=== PATIENT | female | born 1970 | race Caucasian/White ===

== ENCOUNTER 2020-06-04 18:09 | Inpatient (IN) | payer BC ==
[~2020-06-04 18:09] MED LIST: Iopamidol-370 76% 500 ML 1 ML ONE
[2020-06-04] MEDS ORDERED: Ondansetron PF 4 MG/2 ML Vial ONE ×2 (18:20→20:20)
[2020-06-04] MEDS ORDERED: Morphine 4 MG/ML VIAL ONE (18:20)
--- NOTE | 2020-06-04 19:05 | CT ---
CT CERVICAL SPINE 06/04/20 PROVIDED CLINICAL HISTORY: Head injury. FINDINGS: Opacification of the right mastoid air cells is described on concurrent head CT. Please see that rep ort. A temporal bone fracture is not visible on these images. There is no evidence for fracture or tr aumatic subluxation involving the cervical spine. There is no prevertebral soft tissue swelling appar ent. The visualized lung apices appear clear. IMPRESSION: No evidence for fracture or traumatic subluxation. POS: TESSA
[2020-06-04] MEDS ORDERED: Tranexamic Acid 1,000 MG/10 ML VIAL ONE (19:10)
[2020-06-04] MEDS ORDERED: CEFAZOLIN 1 GM VIAL ONE (19:10)
--- NOTE | 2020-06-04 19:10 | CT ---
CT BRAIN 06/04/20 PROVIDED CLINICAL HISTORY: Head injury. FINDINGS: There is a small amount of anterior parafalcine subdural hematoma. Subarachnoid blood is seen in the right temporal region. There may be also subarachnoid hemorrhage within the prepontine cistern. There is conspicuous extra-axial hematoma adjacent to the right occipital region, with a combination of subdural and epidural blood possible. There are multiple foci of intracranial gas present within t his hematoma in the occipital region. There is a widened appearance to the distal aspect of the lambdoid suture. There is opacification of much of the right mastoid air cells. The ventricular system is nondilated. The extracranial soft tiss ues and osseous structures appear otherwise unremarkable with the exception of right parieto-occipita l scalp swelling. IMPRESSION: 1. Right occipital extra-axial hematoma possibly a combination of epidural and subdural blood. S cattered subarachnoid hemorrhage and small anterior parafalcine subdural hematoma. 2. Findings suspicious for right temporal bone fracture. 3. Findings discussed with Dr. Mckeon via telephone, 6:54 p.m., 06/04/20. Code CR POS: TESSA
--- NOTE | 2020-06-04 19:12 | CT ---
CT ABDOMEN AND PELVIS WITH IV CONTRAST: LIMITED CT LUMBAR SPINE 06/04/20 PROVIDED CLINICAL HISTORY: Trauma with lumbar spine pain. FINDINGS: The visualized lung bases are free of significant opacity. The solid abdominal organs demonstrate no evidence for traumatic abnormality. There is enlarged hepat ic biliary ductal prominence on the basis of prior cholecystectomy. There is a tiny nonobstructing ri ght renal calculus. There is no bowel dilatation, inflammatory fat stranding, free fluid or free air apparent. The regional major vascular structures appear unremarkable. The osseous structures demonstrate no evidence for an acute abnormality. Coronal and sagittal lumbar spine reconstructions demonstrate normal spinal alignment and maintenance of vertebral body height. IMPRESSION: No evidence for traumatic abnormality involving the abdomen and pelvis. POS: TESSA
--- NOTE | 2020-06-04 19:12 | RAD ---
Exam: Chest one view HISTORY:Trauma. Fall. Patient hit her head. Comparison: None FINDINGS: Cardiac silhouette: Normal Aorta: Unremarkable Pulmonary vessels: Normal Costophrenic angles: Clear LUNGS: No masses or consolidation. Pneumothorax: None Osseous abnormalities: None IMPRESSION: No acute cardiopulmonary process.
[2020-06-04 19:26] LABS: Hemoglobin 13.5 g/dL (12.0-16.0); Mean Corpuscular HGB CONC 33.1 g/dL (32.0-36.0); Mean Corpuscular Hemoglobin 30.2 pg (27.0-31.0); Mean Corpuscular Volume 91.3 fL (78.0-98.0); Mean Platelet Volume 6.5 fL (7.4-10.4); Platelet Count 396 thou/uL (130-400); Red Blood Cell (RBC) Count 4.46 mill/uL (4.20-5.40); White Blood Cell (WBC) Count 20.2 thou/uL (4.8-10.8)
[2020-06-04] MEDS ORDERED: Acetaminophen 500 MG TAB ONE ×2 (19:29→23:50)
[2020-06-04 19:40] LABS: Eosinophils 1 % (0-10); Lymphocytes 8 % (21-51); MDiff Complete? YES; Monocytes 5 % (0-10); Neutrophil 84 % (42-75); Platelet Morphology Comment Appears Adequate; RBC Morphology Normal; Reactive Lymphocytes 1 % (0-10)
[2020-06-04 19:44] LABS: ALT (SGPT) 13 U/L (8-55); AST (SGOT) 18 U/L (5-34); Albumin 3.8 g/dL (3.5-5.0); Alkaline Phosphatase 73 U/L (40-110); Anion Gap 16 mmol/L (10-20); BUN (Urea Nitrogen) 13 mg/dL (7.0-18.7); Bilirubin, Total 0.2 mg/dL (0.2-1.2); Calc. Creatinine Clearance 0 mL/min (70-130); Calcium 9.1 mg/dL (7.8-10.44); Carbon Dioxide 22 mmol/L (22-29); Chloride 103 mmol/L (98-107); Globulin 2.9 g/dL (2.4-3.5); Glucose 110 mg/dL (70-105); Potassium 3.6 mmol/L (3.5-5.1); Protein, Total 6.7 g/dL (6.0-8.3); Sodium 137 mmol/L (136-145)
[2020-06-04 20:35] LABS: PTT 27.3 sec (22.9-36.1); Prothrombin Time 13.4 sec (12.0-14.7)
--- NOTE | 2020-06-04 20:53 | CON ---
DATE OF CONSULTATION: 06/04/2020 HISTORY OF PRESENT ILLNESS: The patient is a 49-year-old female who is otherwise healthy, who suffered a mechanical fall after slipping backwards while climbing a trailer at approximately 5 feet. The patient reportedly hit the back of her head on a concrete surface with sudden LOC. She was brought to the emergency department by flight EMS, where she was evaluated by the ER team with noncontrast CT head, cervical spine, chest, abdomen, and pelvis. CT of head was notable for an acute right temporal nondisplaced fracture with underlying pneumocephalus as well as a small right-sided occipital epidural hematoma. There is also small amount of blood on the anterior parafalcine region consistent with subdural hematoma as well as traumatic subarachnoid blood along the right temporal region. CT of the cervical spine was negative for acute injury. CT of chest, abdomen, and pelvis was also negative for acute injury. I evaluated the patient at the bedside. She has a GCS of 15. She is A and O x4, although appears significantly uncomfortable with severe headache. She is noted to have some right blood from the right ear canal. No obvious CSF drainage. PAST MEDICAL HISTORY: Otherwise healthy. Denies any prior medical problems. Does not take any anticoagulants or [id number] aspirin. PAST SURGICAL HISTORY: Hysterectomy, appendectomy, and cholecystectomy. SOCIAL HISTORY: She does not smoke, drink, or use any drugs. REVIEW OF SYSTEMS: Per HPI. PHYSICAL EXAMINATION: CONSTITUTIONAL: GCS 15, uncomfortable. VITAL SIGNS: Stable. HEAD: No obvious scalp laceration. There is some blood from the right ear canal. EYES: PERRLA. Extraocular movements intact. ENT: Right ear canal blood noted. Oral mucosa is pink and moist. No obvious trauma. NECK: She is mobilized with the cervical collar, which I removed. She is nontender to the cervical spine. Normal range of motion without any pain with range of motion. I cleared her cervical collar at the bedside. RESPIRATORY: Symmetric chest expansion. No evidence of dyspnea. CARDIOVASCULAR: Regular rate and rhythm. MUSCULOSKELETAL: No obvious trauma. Free active range of motion of all extremities. No focal motor weakness. NEUROLOGIC: She has a GCS of 15. She is A and O x4. Pupils are equal and reactive. No focal neurologic deficits are appreciated at this time. ASSESSMENT AND PLAN: This is a 49-year-old female with fall approximately 5 feet with an acute right temporal bone fracture, nondisplaced with associated epidural hematoma along the right occipital region as well as traumatic subarachnoid blood in the right temporal region and subdural hematoma anterior parafalcine. We will plan to watch her closely in the ICU with q.1 neuro checks. She will be made n.p.o. and we should avoid any anticoagulation. I will plan to repeat an a.m. CT head to reassess her intracranial process. I have discussed this plan with Dr. Hickman, who is in agreement as well as notified the Trauma Service of our current plan. Job ID: [id number]
[2020-06-04 20:54] LABS: SARS-CoV-2 NAA Rapid Test Not Detected (NotDetected)
[2020-06-04] MEDS: Scopolamine 1.5 mg/72 hour Patch TD SCH (21:00)
--- NOTE | 2020-06-04 22:04 | HP ---
REQUESTING PHYSICIAN: Fred Mckeon DO. ADDITIONAL ATTENDING SURGEON: Dr. Edouard. CONSULTATIONS: Neurosurgery, Dr. Hickman. HISTORY OF PRESENT ILLNESS: The patient is a 49-year-old woman, who was brought to the emergency department by air ambulance after a fall from approximately 5 feet. She was working on a trailer and lost her health care specialist and fell backwards onto the pavement. The patient had loss of consciousness for an unknown amount of time. She did wake up and was a GCS of 15 when EMS arrived. She was transported to our facility, where she underwent evaluation and examination, was noted to have temporal bone fracture with epidural hematoma and subarachnoid hemorrhage, at which time we were asked to evaluate the patient for admission and obtain neurosurgical consultations. ALLERGIES: CODEINE. CURRENT MEDICATIONS: Phentermine. PAST MEDICAL HISTORY: None. PAST SURGICAL HISTORY: Appendectomy, cholecystectomy, hysterectomy. SOCIAL HISTORY: The patient denies drug, tobacco, or alcohol use. She lives at home with family. REVIEW OF SYSTEMS: 10-point review of systems is negative as otherwise stated. PHYSICAL EXAMINATION: VITAL SIGNS: Blood pressure 138/62, heart rate 56, respirations 18, oxygen saturation 98% on room air, temperature 98.2. GENERAL: The patient is resting in the ER bed. She appears uncomfortable as she is holding her head, and shortly after my visit, she complained of severe nausea and had episode of emesis. HEENT: Head is normocephalic and atraumatic. Eyes are PERRLA with reported photophobia making extraocular movements difficult to examine but were intact by report. Ears, there is dry blood in the right ear canal. There does not appear to be any obvious CSF fluid. Left ear canal is atraumatic without discharge. Nose is atraumatic without discharge. Oropharynx is clear. NECK: Nontender. Trachea is midline with no JVD. Cervical collar has been cleared by Neurosurgery. RESPIRATIONS: Clear bilaterally. HEART: Slightly tachycardic with regular rhythm. Of note, the patient had just vomited as this may have increased her heart rate, as her previous heart rate was in the 50s and 60s. ABDOMEN: Soft, nontender with hyperactive bowel sounds. EXTREMITIES: Neurovascularly intact x4. [place] Coma Scale is 15. PELVIS: Stable. BACK: Atraumatic and nontender. LABORATORY FINDINGS: White blood cell count 20.2, hemoglobin 13.5, hematocrit 40.7, platelets 396. Sodium 137, potassium 3.6, chloride 103, CO2 of 22, BUN 13, creatinine 0.71, glucose 110. LFTs are unremarkable. PT 13, INR 1.0, PTT 27. COVID is negative. RADIOGRAPHIC FINDINGS: CT of the brain without contrast shows a right occipital extra-axial hematoma, possibly a combination of epidural and subdural blood, scattered subarachnoid hemorrhage, and small anterior parafalcine subdural hematoma. There are findings suspicious for right temporal bone fracture. CT of the C-spine without contrast shows no evidence for fracture or traumatic subluxation. CT of the abdomen and pelvis with IV contrast and limited CT lumbar spine showed no evidence of traumatic abnormality involving the abdomen and pelvis. AP chest x-ray shows no acute cardiopulmonary process. ASSESSMENT/PLAN: 1. Status post fall from approximately 5 feet. 2. Right temporal bone fracture. 3. Right occipital extra-axial hematoma, possibly a combination of epidural and subdural blood. 4. Scattered subarachnoid hemorrhage and small anterior parafalcine subdural hematoma. 5. Acute pain secondary to above. PLAN: Plan will be to admit the patient to the critical care floor for close observation, serial exams with a planned repeat head CT in the morning, sooner as indicated by decline in the [place] Coma Scale. We will do nonnarcotic pain control, pulmonary toilet, gastritis and mechanical VTE prophylaxis. The patient will also have a scopolamine patch placed. The patient was evaluated in the emergency department by SHRUTHI Prather, who discussed this case with Dr. Hickman. The evaluation, examination, laboratory, and radiographic findings will be discussed with Dr. Edouard after this dictation. Job ID: [id number]
[2020-06-04] MEDS ORDERED: Promethazine HCl 25 MG/ML VIAL ONE (22:47)
[2020-06-04] MEDS: Promethazine HCl 25 MG/ML VIAL IM PRN (22:52)
[2020-06-04] MEDS ORDERED: traMADol HCl 50 MG TAB PO PRN (23:45)
[2020-06-04] MEDS ORDERED: Dextrose 5% in Water 1,000 ML IV PRN (23:45)
[2020-06-04] MEDS ORDERED: Dextrose 50% Abboject 50 ML SYRINGE SLOW IVP PRN (23:45)
[2020-06-04] MEDS ORDERED: hydrALAZINE 20 MG/ML VIAL SLOW IVP PRN (23:45)
[2020-06-04] MEDS ORDERED: traMADol HCl 50 MG TAB ONE (23:50)
[2020-06-04] MEDS ORDERED: Famotidine 20 MG TAB PO SCH (23:59)
[2020-06-05] MEDS: Sodium Chloride 0.9% 1,000 ML IV SCH ×2 (00:07→08:41)
[2020-06-05] MEDS: Acetaminophen 500 MG TAB PO SCH ×5 (00:08→23:58)
[2020-06-05] MEDS: traMADol HCl 50 MG TAB PO PRN ×2 (00:19→08:45)
[2020-06-05] MEDS ORDERED: Famotidine 20 MG TAB ONE (00:21)
[2020-06-05 00:30] VITALS: BMI 26.9
[2020-06-05 00:37] LABS: Bilirubin Negative (Negative); Blood, Urine Negative (Negative); Clarity Clear (Clear); Glucose, Urine (Dipstick) Normal (Negative); Ketone, Urine 20 mg/dL (Negative); Leukocyte Negative Leu/uL (Negative); Nitrite Negative (Negative); Pregnancy Test - Urine (BHCG) Negative (Negative); Pregu Control Background? CLEAR/WHITE (CLR/WHITE); Pregu Control Bar Appear? YES (CONTROL BAR); Protein, Urine (Dipstick) Negative (Neg-Trace); Specific Gravity 1.042 (1.002-1.036); Specific Gravity, Urine 1.042 (1.002-1.036); Urobilinogen Normal mg/dL (Less than 2); pH, Urine 6.5 (5.0-9.0)
[2020-06-05] MEDS ORDERED: Morphine 2 MG/ML VIAL ONE (03:14)
[2020-06-05] MEDS: Morphine 2 MG/ML VIAL SLOW IVP SCH ×2 (03:17→15:38)
[2020-06-05] MEDS: ceFAZolin 1 GM/D5W 1 GM in Premix Bag 1 BAG IVPB SCH ×2 (04:07→15:05)
[2020-06-05 04:23] LABS: #Lymphocytes 0.9 thou/uL (1.20-3.40); #Monocytes 0.9 thou/uL (0.11-0.59); #Neutrophils 14.4 thou/uL (1.40-6.50); %Basophils 0.1 % (0.0-1.0); %Eosinophils 0.1 % (0.0-10.0); %Lymphocytes 5.3 % (21.0-51.0); %Monocytes 5.4 % (0.0-10.0); Hemoglobin 11.3 g/dL (12.0-16.0); Mean Corpuscular HGB CONC 32.1 g/dL (32.0-36.0); Mean Corpuscular Hemoglobin 29.8 pg (27.0-31.0); Mean Corpuscular Volume 92.8 fL (78.0-98.0); Mean Platelet Volume 6.6 fL (7.4-10.4); Platelet Count 320 thou/uL (130-400); RBC Distribution Width 11.9 % (11.5-14.5); Red Blood Cell (RBC) Count 3.81 mill/uL (4.20-5.40); White Blood Cell (WBC) Count 16.1 thou/uL (4.8-10.8)
[2020-06-05 04:54] LABS: Anion Gap 10 mmol/L (10-20); BUN (Urea Nitrogen) 11 mg/dL (7.0-18.7); Calc. Creatinine Clearance 153 mL/min (70-130); Calcium 7.4 mg/dL (7.8-10.44); Carbon Dioxide 23 mmol/L (22-29); Chloride 110 mmol/L (98-107); Glucose 117 mg/dL (70-105); Magnesium 1.5 mg/dL (1.6-2.6); Phosphorus 3.1 mg/dL (2.3-4.7); Potassium 3.6 mmol/L (3.5-5.1); Sodium 139 mmol/L (136-145)
--- NOTE | 2020-06-05 07:30 | CT ---
PRELIMINARY REPORT/DIRECT RADIOLOGY/EMERGENCY AFTER HOURS PROCEDURE: EXAM: CT Head Without Intravenous Contrast. CLINICAL HISTORY: Follow up Bifrontal tSAH, SDH TECHNIQUE: Axial computed tomography images of the head/brain without intravenous contrast. COMPARISON: June 04, 2020 FINDINGS: Extraaxial hematoma again posteriorly on the right again possibly a combination of epidural and subdural location of the hemorrhage. The epidural appearing component of the collection more towards the midline may be slightly larger but this is equivocal. Small pockets of pneumocephalus ar e noted secondary to what is presumably an occult fracture either within the temporal bone on the right or along the lambdoid suture on the right. Some mass-effect on the posterior horn of the right lateral ventricle is again noted and about the same. IMPRESSION: Extra-axial hemorrhage posteriorly on the right stable or may be slightly larger. ELECTRONICALLY SIGNED BY: Israel Schaeffer MD Jun 05, 2020 4:32:52 AM MANAGER DOCUMENTATION FINAL REPORT HEAD CT WITHOUT CONTRAST: DATE: 06/05/2020 COMPARISON: 06/04/2020. HISTORY: Reevaluate subarachnoid and subdural hemorrhage. FINDINGS: Small volume extraaxial hemorrhage is seen along the inferior anterior aspect of the interhemispheric fissure on image 9, not significantly changed. There is small volume extraaxial blood in the right sylvian fissure and anterior to the right temporal lobe which appears similar when compared to the pr ior examination. There is extraaxial hemorrhage layering on the right tentorium, similar when compared to prior imaging. There is a subdural hematoma in the posterior right occipital region which measures up to approximately 7 mm in AP dimension, not significantly changed. There is no evidence for new intracranial hemorrhage. There is stable scalp swelling posteriorly on the right. The posteri or right occipital extraaxial subdural hematoma contains foci of gas which are likely representing associated right temporal bone fracture. There is partial opacification of the mastoid air cells and tympanic cavity on the right. Dedicated CT of the temporal bones is suggested for macias assessment. IMPRESSION: No significant interval change in multifocal extraaxial hemorrhage, most prominent in the posterior r ight parieto-occipital region. Hemorrhage in this region contains gas suggesting associated temporal bone fracture on the right for which a dedicated CT of the temporal bones is advised. Given the lobulated configuration of the stable extraaxial hemorrhage in the right occipital region a small associated epidural component cannot be excluded. Continued followup is advised. Transcribed Date/Time: 06/05/2020 8:19 AM
[2020-06-05] MEDS ORDERED: Promethazine HCl 25 MG/ML VIAL ONE (07:32)
[2020-06-05] MEDS: Promethazine HCl 25 MG/ML VIAL IM PRN (07:37)
[2020-06-05] MEDS ORDERED: traMADol HCl 50 MG TAB ONE (08:43)
[2020-06-05] MEDS ORDERED: Ondansetron PF 4 MG/2 ML Vial ONE (08:58)
[2020-06-05] MEDS ORDERED: FLU VACC QS2020-21(6MOS UP)/PF 60 MCG/0.5 ML SYRINGE IM ONE (09:00)
[2020-06-05] MEDS ORDERED: Promethazine HCl 12.5 MG in Sodium Chloride 0.9% 50 ML IVPB SCH (09:00)
[2020-06-05] MEDS: Ondansetron PF 4 MG/2 ML Vial IVP PRN ×2 (09:01→21:25)
[2020-06-05] MEDS: Famotidine 20 MG TAB PO SCH ×2 (09:41→21:19)
[2020-06-05] MEDS: SODIUM CHLORIDE 0.9% IVPB SCH ×3 (10:47→20:55)
[2020-06-05] MEDS: DEXAMETHASONE IVPB SCH ×3 (10:47→20:55)
[2020-06-05] MEDS: PROMETHAZINE HCL IVPB SCH ×3 (10:47→20:55)
--- NOTE | 2020-06-05 11:53 | PRG ---
DATE OF SERVICE: 06/04/2020 The patient is seen and examined. I agree with Germaine Dale's evaluation on 06/03/2020. The patient is 49-year-old woman, who fell striking the back of her head. She is currently arousable, but somewhat somnolent, complains of dizziness and nausea as well as headache. She initially had bloody otorrhea, which now had stopped. CT scan has revealed a right posterior temporal/occipital fracture with a right-sided epidural hematoma and pneumocephalus. This was stable on followup imaging. IMPRESSION AND PLAN: The patient has a right temporal skull fracture with underlying epidural hematoma and pneumocephalus. No neurosurgical intervention is planned. She can be mobilized, but I expect her to be highly symptomatic for some time. The timing for dismissal depends on symptoms. No further imaging is required on this hospitalization. I will plan on a followup head CT in 4 weeks. The patient is at risk for delayed CSF otorrhea and we will need to watch for this. I recommend ceftriaxone while she is in the hospital, which can be discontinued upon discharge. Job ID: [id number]
[2020-06-05] MEDS: cefTRIAXone\\ROCEPHIN 1 GM in Sodium Chloride 0.9% 100 ML IVPB SCH (15:37)
--- NOTE | 2020-06-05 15:58 | PRG ---
DATE OF SERVICE: 06/05/2020 SUBJECTIVE: The patient is hospital day #2 status post fall, in which she sustained subdural and epidural hematomas. She was admitted to the facility for serial exams and close followup. Overnight, she remained neurologically stable with a [place] Coma Scale of 14/15. She continued to have intermittent bouts of severe emesis, which we addressed this morning. She appears to be better controlled and her headache is also better controlled, though we do expect this to linger likely for the next day or so. OBJECTIVE: VITAL SIGNS: Temperature is 98.0, heart rate 72, blood pressure 112/76, respirations 14, and oxygen saturation is 100% on room air. GENERAL: The patient is resting in bed. She was asleep at the time of our visit. Family member reports that she will awaken to verbal stimuli. During the initial evaluation, we did not awaken her on followup as she was initially in the emergency department as a CCU hold over. In the afternoon, she was able to be moved up to the surgical floor. While there, she maintained a GCS score of 14, -1 for eye opening, partly because she is trying to rest and she has photophobia. HEENT. Head is normocephalic, atraumatic. Eyes are PERRLA. Again, photophobia prevents her from following extraocular motion. Ears are atraumatic without discharge. Nose is atraumatic without discharge. Oropharynx is clear. LUNGS: Clear to auscultation bilaterally. HEART: Regular rate and rhythm. ABDOMEN: Soft, flat, nontender with hyperactive bowel sounds. EXTREMITIES: Neurovascularly intact x4. LABORATORY FINDINGS: White blood cell count 16.1, hemoglobin 11.3, hematocrit 35.3, and platelets 320. Sodium 139, potassium 3.6, chloride 110, CO2 of 23, BUN 11, creatinine 0.56, glucose 117, magnesium 1.5, phosphorus 3.1. RADIOGRAPHIC STUDIES: CT of the brain without contrast shows extra-axial hemorrhage posteriorly on the right, stable or may be slightly larger. ASSESSMENT AND PLAN: 1. Status post fall from approximately 5 feet. 2. Right temporal bone fracture. 3. Right occipital extra-axial hematoma, possible with a combination of epidural and subdural blood. 4. Scattered subarachnoid hemorrhage and small anterior parafalcine subdural hematoma. 5. Postconcussive headache, nausea and vomiting. PLAN: Continue supportive care. We have added IV Phenergan and Decadron to her regimen, we will schedule this. Continue scopolamine patch, Zofran as needed, and nonnarcotic pain medications. We will start the patient ambulating as soon as she is able to and advance her diet as tolerated. The patient will likely benefit from a short inpatient rehab stay. The patient was evaluated this morning by Dr. Hickman and by Dr. Rose. Job ID: [id number]
[2020-06-05] MEDS ORDERED: Morphine 2 MG/ML VIAL SLOW IVP SCH (16:00)
[2020-06-05] MEDS: Morphine 2 MG/ML VIAL SLOW IVP PRN ×2 (19:26→23:58)
[2020-06-06] MEDS: SODIUM CHLORIDE 0.9% IVPB SCH ×2 (00:50→06:54)
[2020-06-06] MEDS: PROMETHAZINE HCL IVPB SCH ×2 (00:50→06:54)
[2020-06-06] MEDS: DEXAMETHASONE IVPB SCH ×2 (00:50→06:54)
[2020-06-06] MEDS: Cyclobenzaprine 10 MG TAB PO PRN ×2 (03:44→20:26)
[2020-06-06] MEDS: traMADol HCl 50 MG TAB PO PRN ×3 (03:44→19:19)
[2020-06-06] MEDS: Ondansetron PF 4 MG/2 ML Vial IVP PRN (03:45)
[2020-06-06] MEDS: Acetaminophen 500 MG TAB PO SCH ×4 (06:54→23:13)
[2020-06-06] MEDS: Ondansetron ODT 4 MG TAB PO PRN (09:16)
[2020-06-06] MEDS: Famotidine 20 MG TAB PO SCH ×2 (09:17→20:26)
--- NOTE | 2020-06-06 09:18 | PRG ---
DATE OF SERVICE: 06/06/2020 SUBJECTIVE: The patient is now day #2, status post head injury with right occipital epidural hematoma and a right occipital temporal fracture. The patient has been transitioned to the floor, and she reports her symptoms seem to be gradually improving slowly with time period. She still has significant headache, some nausea and dizziness. She was able to sit up yesterday evening and stand as well as walk across the room for a short period of time. OBJECTIVE: NEUROLOGIC: On exam this morning, she awakens easily. She is A and O x4. Pupils are equal and reactive. She is nonfocal on her exam. The patient will likely have significant postconcussive type symptoms for a period of time. I agree that she would benefit from inpatient rehabilitation, and trauma has begun this process. Job ID: [id number] [facility]
--- NOTE | 2020-06-06 14:11 | PRG ---
DATE OF SERVICE: 06/06/2020 SUBJECTIVE: The patient remains on the surgical floor. She is status post a fall, in which she sustained an epidural hematoma, right occipital temporal fracture, and subarachnoid hemorrhage. The patient had much better night last night once we were able to consistently give her pain medication, nausea medications, and her Decadron. This morning, she was able to stand to do hygiene and she was also able to ambulate with Physical Therapy. She is tolerating her diet and her pain is controlled. The patient has less photophobia today, and her is at bedside, which I believe is also helping her. PHYSICAL EXAMINATION: VITAL SIGNS: Temperature is 98.4, heart rate 73, blood pressure 124/75, respirations 18, oxygen saturation 97% on room air. GENERAL: The patient is resting comfortably in bed. She was asleep when we get in there, but she easily awakened to verbal stimuli. She reports that she feels better. Her [place] Coma Scale is 14, -1 for eye opening. HEENT: Unremarkable. RESPIRATIONS: Nonlabored. ABDOMEN: Nondistended. EXTREMITIES: Neurovascularly intact x4. LABORATORY DATA: There are no labs or radiographs to review this morning. ASSESSMENT AND PLAN: 1. Status post fall from approximately 5 feet. 2. Right temporal bone fracture, stable. 3. Right occipital extra-axial hematoma, possibly a combination of epidural and subdural blood. 4. Scattered subarachnoid hemorrhage and small anterior parafalcine subdural hematoma. 5. Postconcussive nausea, headache, and photophobia, improved. Plan will be to continue supportive care, encourage physical and occupational therapy, pain control, and we will continue antibiotics per Neurosurgery's recommendations until the patient is discharged. The patient was evaluated this morning with Dr. Rose during rounds. Job ID: [id number]
[2020-06-06] MEDS: cefTRIAXone\\ROCEPHIN 1 GM in Sodium Chloride 0.9% 100 ML IVPB SCH (16:00)
[2020-06-07] MEDS: traMADol HCl 50 MG TAB PO PRN ×2 (04:00→15:36)
[2020-06-07] MEDS: Acetaminophen 500 MG TAB PO SCH (05:25)
[2020-06-07] MEDS: Ondansetron ODT 4 MG TAB PO PRN (08:15)
[2020-06-07] MEDS: Cyclobenzaprine 10 MG TAB PO PRN ×3 (08:16→23:54)
[2020-06-07] MEDS: HYDROcodone/Acetaminophen 5/325 mg Tablet PO PRN ×2 (08:17→16:27)
[2020-06-07] MEDS: Acetaminophen 325 MG TAB PO SCH ×3 (08:18→20:03)
[2020-06-07] MEDS: Famotidine 20 MG TAB PO SCH ×2 (08:19→20:04)
[2020-06-07] MEDS: Gabapentin 300 MG CAP PO SCH ×2 (08:19→20:04)
--- NOTE | 2020-06-07 09:35 | PRG ---
DATE OF SERVICE: 06/07/2020 The patient is doing well and having improvement of her overall headaches, nausea, and dizziness. She is up working with Physical Therapy in the halls today. On exam, she is awake, alert, and oriented x4. She has free active range of motion all extremities. No focal motor weakness. Pupils are equal and reactive. The patient is improving slowly. She continues to have issues with headaches, but these are controlled with p.o. medications. I feel that she could likely be discharged to home later today and we will arrange followup CT and reassessment with Dr. Hickman in the next 2 weeks. Job ID: [id number]
[2020-06-07] MEDS: cefTRIAXone\\ROCEPHIN 1 GM in Sodium Chloride 0.9% 100 ML IVPB SCH (15:38)
--- NOTE | 2020-06-07 15:55 | PRG ---
DATE OF SERVICE: 06/07/2020 SUBJECTIVE: The patient remains on the surgical floor. She is status post a fall from approximately 5 feet in which she sustained a subarachnoid small epidural hematoma. She has been progressing well. Her headaches have improved, though she still is requiring occasional narcotic for her pain. She is tolerating a diet and her nausea has resolved. She is ambulating with therapy. PHYSICAL EXAMINATION: VITAL SIGNS: Temperature is 98.6, heart rate 67, blood pressure 130/85, respirations 20, and oxygen saturation 95% on room air. GENERAL: The patient is resting comfortably in bed. She has just returned from ambulating in the hallway. She had a steady gait, required no assistance. Her [place] Coma Scale is 15. HEENT: Unremarkable. LUNGS: Clear to auscultation. RESPIRATIONS: Nonlabored. ABDOMEN: Nondistended. EXTREMITIES: Neurovascularly intact x4. LABORATORY DATA: There are no labs or radiographs to review this morning. ASSESSMENT: 1. Status post fall from approximately 5 feet. 2. Right temporal bone fracture, stable. 3. Right occipital extra-axial hematoma, possibly a combination of epidural and subdural blood. 4. Scattered subarachnoid hemorrhage and small anterior parafalcine subdural hematoma, stable. 5. Postconcussive nausea, headache, photophobia, improved. PLAN: Plan will be to continue encouraging physical and occupational therapy. Supportive care. Discuss placement. There was a lengthy discussion with the patient and regarding discharge planning as the patient's will be with her full-time. The consensus is that she not be discharged to home if she is still requiring narcotics for her headaches. The reason being that this could mask of potential problems, but she is able to go home with nonnarcotic pain medications as this will be safer. All were in agreement. We will see how she does throughout the day and tonight and decide tomorrow. Job ID: [id number]
[2020-06-07] MEDS: Scopolamine 1.5 mg/72 hour Patch TD SCH (20:04)
[2020-06-08] MEDS: traMADol HCl 50 MG TAB PO PRN ×4 (02:22→23:57)
[2020-06-08] MEDS: Acetaminophen 325 MG TAB PO SCH ×4 (02:22→20:05)
[2020-06-08] MEDS: Cephalexin 250 MG CAP PO SCH ×4 (05:33→23:57)
[2020-06-08] MEDS: HYDROcodone/Acetaminophen 5/325 mg Tablet PO PRN ×2 (05:35→11:26)
[2020-06-08] MEDS: Famotidine 20 MG TAB PO SCH ×2 (09:34→20:05)
[2020-06-08] MEDS: Saccharomyces boulardii 250 MG CAP PO SCH (09:34)
[2020-06-08] MEDS: Gabapentin 300 MG CAP PO SCH (09:35)
[2020-06-08] MEDS: Cyclobenzaprine 10 MG TAB PO PRN ×2 (11:25→23:57)
--- NOTE | 2020-06-08 14:25 | PDOC.EEG ---
Neurology EEG Report - Report Report: This EEG was performed using 24 channel [employer] video EEG machine with 24 disc electrodes. This was an extended 2 hours 5 minutes of inpatient video EEG recording. Digital analysis of the EEG was done for spike and seizure detection which revealed no abnormalities. Background: There is a nonsustained posterior background rhythm of 8.5-9 Hz. Posterior background rhythm attenuates with eye opening enhances with eye closure. Hyperventilation: No significant response Photic Stimulation: Bioccipital symmetric driving response is observed Sleep: Drowsiness and sleep are observed. EEG Diagnosis: Normal awake , drowsy and sleep EEG.
--- NOTE | 2020-06-08 14:27 | CON ---
NEUROLOGY CONSULTATION DATE OF CONSULTATION: 06/08/2020 REASON FOR CONSULTATION: Status post fall, head injury, subdural hematoma, post-concussive syndrome. HISTORY OF PRESENT ILLNESS: Ms. 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 The patient had loss of consciousness for unknown duration and when she woke up, her GCS was 15. When the EMS arrived, she was transported to [facility], where she underwent evaluation and examination and was noted to have a temporal bone fracture with epidural hematoma and subarachnoid hemorrhage, and at that time, she was evaluated by the Neurosurgery who did not feel the need for neurosurgical intervention at that time and recommended plan for a followup head CT in 4 weeks. The patient admits to having headaches, severe around her eyes and also the rest of the head with photophobia and nausea, but denies vomiting. She also complains of back pain, which is currently better. She denies any focal weakness, focal paresthesias, chest pain, abdominal pain, recent illness or recent exposure to COVID, double vision, loss of vision or loss of consciousness, or seizures associated with this episode. REVIEW OF SYSTEMS: All systems reviewed and were negative except the pertinent positives and negatives mentioned in the HPI. ALLERGIES: CODEINE. HOME MEDICATIONS: Phentermine. PAST MEDICAL HISTORY: No significant past medical history. PAST SURGICAL HISTORY: Appendectomy, cholecystectomy, hysterectomy. SOCIAL HISTORY: The patient lives at home with family. Denies alcohol or illegal drug use. PHYSICAL EXAMINATION: VITAL SIGNS: Blood pressure 138/62, pulse 56, respiratory rate 18. CARDIOVASCULAR SYSTEM: Regular rate and rhythm. CHEST: Clear. ABDOMEN: Soft. NECK: Supple. NEUROLOGIC: Mental status; the patient is alert and oriented to person, place, and time. Speech is clear. Cranial nerves 2 through 12 intact. Motor, muscle tone and bulk are normal. Moving all 4 extremities equally and symmetrically. Strength exam limited because of pain. Cerebellar, finger-nose testing intact. Gait, deferred due to the patient's safety reason. DATA REVIEWED: I reviewed the labs, which is essentially unremarkable. COVID is negative. CT of the head showed right occipital extra-axial hematoma with a combination of epidural and subdural blood and scattered subarachnoid hemorrhage, small anterior parafalcine subdural hematoma, and right temporal bone fracture. CT of the C-spine did not show any evidence of fracture or traumatic subluxation. CT of the abdomen and pelvis with intravenous contrast was essentially negative and limited CT lumbar spine did not show any evidence of trauma. Chest x-ray did not show any evidence of cardiopulmonary process. ASSESSMENT AND PLAN: Mariya Briones is a 49-year-old female with no significant past medical history, presented with status post fall approximately 5 feet resulting in right temporal bone fracture and right occipital extra-axial hematoma, which is possibly a combination of epidural and subdural blood and scattered subarachnoid hemorrhage. Followup head CT showed stable hemorrhage. Neurosurgery is on board and they did not feel the need for surgical intervention at this time. Neurology was consulted for recommendations regarding headache, which is part of post- concussion syndrome. I had a long discussion with the patient and the regarding the symptoms, which include memory issues and headache, which can last over a long time, 4 to 6 months. However, since the pain is intractable, we will start her on a combination of Compazine and Benadryl IV scheduled q.6 hours x4 doses to see if it aborts the headache. We will also recommend starting gabapentin 100 mg b.i.d. for headache prophylaxis. Neuro checks every 4 hours. Continue home medications. Avoid narcotics as they can cause rebound headaches. EEG to rule out cortical irritability, which may contribute to memory issues and confusion. Continue medical management per primary team. Plan discussed in detail with the patient, the patient's at bedside and also with the nursing staff. Job ID: [id number] [facility]
[2020-06-08] MEDS: diphenhydrAMINE 50 MG/ML VIAL IVP SCH ×2 (15:47→20:06)
[2020-06-08] MEDS: Prochlorperazine 10 MG/2 ML VIAL IVP SCH ×2 (15:47→20:06)
--- NOTE | 2020-06-08 16:19 | PRG ---
DATE OF SERVICE: 06/08/2020 SUBJECTIVE: The patient remains on the surgical floor. She is status post a fall, in which she sustained subdural, subarachnoid hemorrhages and a skull fracture. The patient has been having persistent postconcussive headaches. This morning, we asked her to be evaluated by Neurology, who evaluated her and did an EEG. The EEG was unremarkable, and Dr. Shook is going to try IV Benadryl and Phenergan every 6 hours x24 hours to see if she can break her headaches. She also advises to stop any narcotic use as there may be a rebound effect from them also. Other than the headache, the patient reports that she is still able to ambulate without assistance with therapy. She is tolerating a diet and voiding without problem. PHYSICAL EXAMINATION: VITAL SIGNS: Temperature is 98.4, heart rate 60, blood pressure 128/79, respirations 16, and oxygen saturation 96% on room air. GENERAL: The patient is resting comfortably in bed. She is currently undergoing her EEG. Discussion with reports no issues. RESPIRATIONS: Nonlabored. ABDOMEN: Nondistended. EXTREMITIES: Neurovascular intact x4. LABORATORY DATA: There are no labs or radiographs to review this morning. ASSESSMENT AND PLAN: 1. Status post fall from approximately 5 feet. 2. Right temporal bone fracture, stable. 3. Right occipital extra-axial hematoma, possibly combination of epidural and subdural blood. 4. Scattered subarachnoid hemorrhage and small anterior parafalcine subdural hematoma, stable. 5. Postconcussive nausea and photophobia, resolved. 6. Postconcussive headache, persistent. Plan will be to attempt Benadryl and Phenergan IV per Neurology and await the results of that. We will continue supportive care. Encourage physical and occupational therapy and once again address possible placement. The patient was evaluated this morning with Dr. Bush during rounds. Job ID: [id number]
[2020-06-08] MEDS: Senokot S 8.6-50 MG TAB PO SCH (20:04)
[2020-06-08] MEDS: Gabapentin 100 MG CAP PO SCH (20:05)
[2020-06-09] MEDS: Acetaminophen 325 MG TAB PO SCH ×2 (03:11→09:48)
[2020-06-09] MEDS: Prochlorperazine 10 MG/2 ML VIAL IVP SCH ×2 (03:12→09:46)
[2020-06-09] MEDS: diphenhydrAMINE 50 MG/ML VIAL IVP SCH ×2 (03:12→09:46)
[2020-06-09] MEDS: Cephalexin 250 MG CAP PO SCH (05:51)
[2020-06-09] MEDS: traMADol HCl 50 MG TAB PO PRN (05:51)
[2020-06-09] MEDS ORDERED: Polyethylene Glycol 3350 17 GM Packet PO SCH (09:00)
[2020-06-09] MEDS: Saccharomyces boulardii 250 MG CAP PO SCH (09:45)
[2020-06-09] MEDS: Gabapentin 100 MG CAP PO SCH (09:45)
[2020-06-09] MEDS: Famotidine 20 MG TAB PO SCH (09:45)
[2020-06-09] MEDS: Senokot S 8.6-50 MG TAB PO SCH (09:45)
--- NOTE | 2020-06-09 11:02 | MRI ---
EXAM: MRI of the brain without contrast HISTORY: Severe headaches and sensitivity to light after head injury COMPARISON: CT brain 06/05/2020 TECHNIQUE: Multiplanar multisequence MR images were obtained of the brain without IV contrast. FINDINGS: There is FLAIR signal abnormality in the bilateral frontal lobes and bilateral temporal lobes which m ay represent edema from prior nonhemorrhagic contusions. No restricted diffusion. No hydronephrosis. A subdural mixed fluid collection is seen in the right parietal region consistent with a remote subdu ral hematoma. This probably demonstrates low T2 signal consistent with hemosiderin and has blooming artifact. This measures 1.4 cm in greatest thickness. The expected flow voids are present. Corpus callosum, pituitary, and craniocervical junction are within normal limits. The calvarium and overlying soft tissues are unremarkable. The paranasal sinuses are well aerated. Fluid is seen in the bilateral mastoid air cells. IMPRESSION: 1. Subacute/remote right parietal subdural hematoma 2. Subacute contusions in the bilateral frontal and temporal lobes. 2. There is opacification of the mastoid air cells and a temporal bone fracture is likely. A temporal bone CT was previously recommended.
[2020-06-09] MEDS: Acetaminophen 500 MG TAB PO SCH ×2 (11:12→17:25)
--- NOTE | 2020-06-09 13:23 | PDOC.NEUPN ---
- Subjective Encounter Date: 06/09/20 Subjective: Mrs. Briones continues to have headaches. at bedside. - Objective Vital Signs & Weight: Vital Signs (12 hours) Temp Pulse Resp BP Pulse Ox 06/09/20 08:20 98.3 F 63 12 157/78 H 94 L 06/09/20 03:10 98.2 F 64 18 151/75 H 95 Weight Weight 171 lb 15.369 oz I&O: 06/08/20 06/09/20 06/10/20 06:59 06:59 06:59 Intake Total 1969 1550 Balance 1969 1550 Result Diagrams: 06/05/20 04:04 06/05/20 04:04 Radiology Reviewed by me: Yes EKG Reviewed by me: Yes ROS - Review of Systems ROS unobtainable: due to mental status (Increased somnolence because of medicati on) - Medication Medications: Active Medications Generic Name Dose Route Start Last Admin Trade Name Freq PRN Reason Stop Dose Admin Acetaminophen 1,000 mg 06/09/20 12:00 06/09/20 11:12 Acetaminophen 500 Mg Tab PO 1,000 mg Q6HR FABI Administration Cyclobenzaprine HCl 5 mg 06/04/20 23:45 06/08/20 23:57 Cyclobenzaprine 10 Mg Tab PO 5 mg TID PRN Administration Muscle Spasm Famotidine 20 mg 06/05/20 09:00 06/09/20 09:45 Famotidine 20 Mg Tab PO 20 mg BID FABI Administration Ondansetron HCl 4 mg 06/04/20 23:45 06/06/20 03:45 Ondansetron Pf 4 Mg/2 Ml Vial IVP 4 mg Q6H PRN Administration Nausea Ondansetron HCl 4 mg 06/04/20 23:45 06/07/20 08:15 Ondansetron Odt 4 Mg Tab PO 4 mg Q6H PRN Administration Nausea/Vomiting Polyethylene Glycol 17 gm 06/09/20 09:00 06/09/20 09:46 Polyethylene Glycol 3350 17 Gm Packet PO 17 gm DAILY FABI Administration Promethazine HCl 25 mg 06/04/20 22:42 06/05/20 07:37 Promethazine Hcl 25 Mg/Ml Vial IM 25 mg Q4H PRN Administration Nausea/Vomiting Saccharomyces Boulardii 250 mg 06/08/20 09:00 06/09/20 09:45 Saccharomyces Boulardii 250 Mg Cap PO 06/13/20 09:01 250 mg DAILY FABI Administration Scopolamine 1.5 mg 06/04/20 21:00 06/07/20 20:04 Scopolamine 1.5 Mg/72 Hour Patch TD 1.5 mg Q3D FABI Administration Senna/Docusate Sodium 1 tab 06/08/20 21:00 06/09/20 09:45 Senokot S 8.6-50 Mg Tab PO 1 tab BID FABI Administration - Exam General Appearance: ill appearing Eye: PERRL ENT: normocephalic atraumatic Neck: supple Respiratory: CTAB Cardiovascular: RRR Gastrointestinal: soft Extremities: no cyanosis Skin: normal turgor Neurological: no new deficit Musculoskeletal: normal tone, no muscle wasting PSYCH: A&O x 3 Results - Labs Result Diagrams: 06/05/20 04:04 06/05/20 04:04 Lab results: WBC 16.1 thou/uL (4.8-10.8) H 06/05/20 04:04 Hgb 11.3 g/dL (12.0-16.0) L 06/05/20 04:04 Hct 35.3 % (36.0-47.0) L 06/05/20 04:04 MCV 92.8 fL (78.0-98.0) 06/05/20 04:04 Plt Count 320 thou/uL (130-400) 06/05/20 04:04 Neutrophils % 89.0 % (42.0-75.0) H 06/05/20 04:04 Sodium 139 mmol/L (136-145) 06/05/20 04:04 Potassium 3.6 mmol/L (3.5-5.1) 06/05/20 04:04 Chloride 110 mmol/L (98-107) H 06/05/20 04:04 Carbon Dioxide 23 mmol/L (22-29) 06/05/20 04:04 BUN 11 mg/dL (7.0-18.7) 06/05/20 04:04 Creatinine 0.56 mg/dL (0.6-1.1) L 06/05/20 04:04 Glucose 117 mg/dL (70-105) H 06/05/20 04:04 Calcium 7.4 mg/dL (7.8-10.44) L 06/05/20 04:04 Total Bilirubin 0.2 mg/dL (0.2-1.2) 06/04/20 19:13 AST 18 U/L (5-34) 06/04/20 19:13 ALT 13 U/L (8-55) 06/04/20 19:13 Alkaline Phosphatase 73 U/L (40-110) 06/04/20 19:13 Serum Total Protein 6.7 g/dL (6.0-8.3) 06/04/20 19:13 Albumin 3.8 g/dL (3.5-5.0) 06/04/20 19:13 Urine Ketones 20 mg/dL (Negative) A 06/05/20 00:19 Urine Blood Negative (Negative) 06/05/20 00:19 Urine Nitrite Negative (Negative) 06/05/20 00:19 Ur Leukocyte Esterase Negative Ronald/uL (Negative) 06/05/20 00:19 - Radiology Interpretation MRI - head Additional Comment: MRI of the head showed bilateral subacute contusions in the frontal and the temporal lobes. It also showed parietal subdural hematoma PN A/P (1) Post-concussion headache Code(s): G44.309 - POST-TRAUMATIC HEADACHE, UNSPECIFIED, NOT INTRACTABLE Status: Acute - Plan Daily Plan: plan discussed w/ family ( at bedside), PT/OT, out of bed/ambulate, DVT proph w/SCDs Mrs. Briones is a 49-year-old female who was consulted because of post concussive headache after a 5 feet fall from the trailer which resulted in parietal subdural hematoma and bilateral frontal and temporal contusions. She was started on Benadryl and Compazine yesterday with gabapentin which did not affect the headache frequency.The family was made aware that postconcussive symptoms may last for 4 to 6 months. EEG reviewed to rule out cortical irritability due to bleed was negative for seizure activity. We will continue Benadryl and Compazine for scheduled doses every 6 hours for 1 more day as abortive therapy. Increase gabapentin to 200 mg p.o. 3 times daily. Neurochecks every 4 hours. Avoid anticoagulants and antiplatelets because of recent bleed. Continue medical management per primary team. PT/OT/speech Consider pain management consult since postconcussive headache is difficult to control. Plan discussed in detail with the patient , at bedside and also the [facility] staff.
[2020-06-09] MEDS ORDERED: Gabapentin 300 MG CAP PO SCH (15:00)
[2020-06-09] MEDS ORDERED: Gabapentin 100 MG CAP PO SCH ×2 (15:00→21:00)
[2020-06-09 17:32] VITALS: BP 132/83; TEMP 98.4
[2020-06-09] MEDS ORDERED: diphenhydrAMINE 50 MG/ML VIAL IVP SCH (18:00)
[2020-06-09] MEDS ORDERED: Prochlorperazine 10 MG/2 ML VIAL IVP SCH (18:00)
--- NOTE | 2020-06-10 02:55 | DIS ---
DATE OF ADMISSION: 06/04/2020 DATE OF DISCHARGE: 06/09/2020 ADMITTING ATTENDING: Dr. Rose. DISCHARGE ATTENDING: Dr. Rose. CONSULTS: Neurosurgery, Dr. Hickman. Neurology, Dr. Shook. PROCEDURES/IMAGIN. Abdomen and pelvis CT 06/04/2020 showed no evidence for traumatic abnormality involving the abdomen and pelvis. 2. Brain CT 06/04/2020 shows right occipital extra-axial hematoma, combination of epidural and subdural blood, scattered subarachnoid hemorrhage, right temporal bone fracture. 3. Cervical spine CT on 06/04/2020 showed no evidence for acute fracture or subluxation. 4. Chest x-ray 06/04/2020 showed no acute cardiopulmonary process. 5. EEG on 06/08/2020 result was normal awake, drowsy and sleep EEG. PRIMARY DIAGNOSES: Fall from approximately 5 feet with right temporal bone fracture, scattered subarachnoid hemorrhage, epidural and subdural hematoma. SECONDARY DIAGNOSIS: Post concussive headache. DISCHARGE MEDICATIONS: 1. Acetaminophen 1000 mg p.o. q.6 hours p.r.n. pain. 2. Flexeril 5 mg p.o. t.i.d. p.r.n. 3. Gabapentin 200 mg p.o. t.i.d. 4. Zofran 4 mg p.o. q.6h p.r.n. nausea, vomiting. 5. Tramadol 50 mg 1-2 tabs q.6h p.r.n. 6. Benadryl 25 mg p.o. q.6 for 2 days. 7. Compazine 10 mg p.o. q.6h for 2 days. 8. Valacyclovir 500 p.o. daily. HISTORY OF PRESENT ILLNESS: The patient is a 49-year-old female with no past medical history, who was brought to the ED by air ambulance after a fall from approximately 5 feet. She had been working on a trailer and fell backwards hitting her head on the pavement. She had loss of consciousness for an unknown amount of time. In the ED, she underwent evaluation and was noted to have a temporal bone fracture with subdural and epidural hematoma. Neurosurgery was consulted from the ED, evaluated her and started nonoperative management . In the ED, she was treated with a scopolamine patch, Zofran, Tylenol, cefazolin, morphine and fluids. On physical exam, the patient's vital signs were stable. She was uncomfortable complaining of severe nausea and having episodes of emesis. Also reported photophobia. She was noted to have bloody otorrhea from right ear canal with no obvious CSF fluid. LABORATORY DATA: white blood cell count was 20.2, hemoglobin 13.5, hematocrit 40.7, platelets 396. PT 13, INR 1, PTT 27. Throughout patient's stay, she continued to complain of postconcussive symptoms including nausea, vomiting, and headache. Neurology was consulted on 06/08/2020. Dr. Shook saw the patient and performed EEG. Results as above. She discussed with the patient postconcussive symptoms can last 4 to 6 months and recommended symptomatic treatment. The patient's pain was controlled with a combination of pain medications, avoiding NSAIDs due to brain bleed. The patient was felt stable to discharge home. DISCHARGE INSTRUCTIONS: 1. Location: Home. 2. Diet: Regular. 3. Activity: As tolerated. 4. Follow up: With PCP in 1 week and follow up with Dr. Hickman in 2 weeks. Job ID: [id number] MTD[facility]
== END 2020-06-09 17:33 | disposition home or self-care (01) | DRG 84 ==
LOC: ERS 18:09 → ERHOLD 19:55 → SURG A 06-05 14:31
PROVIDERS: ADMIT Surgery; ATTEND Surgery
DX: S06.5X9A Traumatic subdural hemorrhage with loss of consciousness of unspecified duration, initial encounter (principal); Z20.822 Contact with and (suspected) exposure to COVID-19; S06.6X9A Traumatic subarachnoid hemorrhage with loss of consciousness of unspecified duration, initial encounter; S06.4X9A Epidural hemorrhage with loss of consciousness of unspecified duration, initial encounter; W17.89XA Other fall from one level to another, initial encounter; S02.19XA Other fracture of base of skull, initial encounter for closed fracture; G93.89 Other specified disorders of brain; G44.309 Post-traumatic headache, unspecified, not intractable; H53.149 Visual discomfort, unspecified; F07.81 Postconcussional syndrome; Z88.5 Allergy status to narcotic agent; Z90.710 Acquired absence of both cervix and uterus; Z90.49 Acquired absence of other specified parts of digestive tract; Z79.899 Other long term (current) drug therapy; R40.2362 Coma scale, best motor response, obeys commands, at arrival to emergency department; R40.2142 Coma scale, eyes open, spontaneous, at arrival to emergency department; R40.2252 Coma scale, best verbal response, oriented, at arrival to emergency department
CPT/HCPCS: 36415; 70450; 70551; 71045; 72125; 74177; 80048; 80053; 81003; 81025; 83735; 84100; 85025; 85610; 85730; 93005; 95712; 95819; 95957; 96365; 96367; 96375; 96376; G0390; J0690; J0696; J0780; J1100; J1200; J2270; J2405; J2550; J3490; Q0162; Q9967; U0002

== ENCOUNTER 2020-06-23 12:32 | Outpatient (CLI) | payer BC ==
--- NOTE | 2020-06-23 13:07 | CT ---
Head CT without contrast 06/23/2020: COMPARISON: 06/05/2020 HISTORY: Traumatic subdural hematoma, reevaluate intracranial hemorrhage TECHNIQUE: Axial CT imaging at 5 mm intervals from vertex through skull base without contrast FINDINGS: The imaged paranasal sinuses and mastoid air cells demonstrate opacification of the mastoid air cells on the right with an obliquely oriented right temporal bone fracture noted, best seen on axial image 16, a stable finding when compared to the prior CT examination. There is no evidence for acute intracranial hemorrhage. There is a small posterior right occipital subdural collection measuring 4 mm AP dimension and 2.1 cm in transverse dimension, centrally hypodense, consistent with a resolving small hematoma, decreased in size when compared to the prior exam. Gas noted within this subdural hematoma on the stella or examination has resolved. No evidence for pneumocephalus is seen on this examination. Subarachnoid hemorrhage seen on the prior examination has resolved. IMPRESSION: Small residual/resolving posterior right occipital lobe subdural hematoma. Opacified righ t mastoid air cells with associated obliquely oriented nondisplaced right temporal bone fracture. No new hemorrhage.
== END 2020-06-23 12:33 | disposition home or self-care (01) ==
LOC: TBSIIMAG 12:32
PROVIDERS: ATTEND Neurological Surgery
DX: S06.5X9D Traumatic subdural hemorrhage with loss of consciousness of unspecified duration, subsequent encounter (principal); S02.19XD Other fracture of base of skull, subsequent encounter for fracture with routine healing
CPT/HCPCS: 70450

== ENCOUNTER 2020-09-30 13:52 | Outpatient (CLI) | payer BC | END 2020-09-30 13:53 | disposition home or self-care (01) | LOC: TBSIIMAG 13:52 | PROVIDERS: ATTEND Neurological Surgery | DX: S09.90XD Unspecified injury of head, subsequent encounter (principal); S00.83XS Contusion of other part of head, sequela | CPT/HCPCS: 70551 ==

== ENCOUNTER 2023-04-18 10:52 | Outpatient (CLI) | payer BC | END 2023-04-18 10:53 | disposition home or self-care (01) | LOC: BICMRI 10:52 | PROVIDERS: ATTEND Orthopaedic Surgery | DX: M75.102 Unspecified rotator cuff tear or rupture of left shoulder, not specified as traumatic (principal) ==